=== PATIENT | female | born 1935 | race Caucasian/White ===

== ENCOUNTER 2017-04-14 12:49 | Day surgery (SDC) | payer MEDICARE, OTHER ==
[~2017-04-14] VITALS: Ht 152.4 cm; Wt 60.7 kg
[2017-04-14 13:27] VITALS: BP 155/82; PULSE 84; TEMP 99
[2017-04-14] MEDS ORDERED: PRILOSEC 20MG20 MG PO (14:26)
[2017-04-14] MEDS ORDERED: ULTRACET TABL1 UDTAB PO (14:28)
[2017-04-14] MEDS ORDERED: LEVOXYL0.137 MG PO (14:29)
[2017-04-14] MEDS ORDERED: NEURONTIN100 MG/CAP PO (14:30)
[2017-04-14] MEDS ORDERED: ZYRTEC 10MG10 MG PO (14:31)
[2017-04-14] MEDS ORDERED: CALCIUM CITRATE1 TA1 PO (14:32)
[2017-04-14] MEDS ORDERED: ACIDOPHILIS PO (14:33)
[2017-04-14] MEDS ORDERED: MULTI VITAMINS1 TAB PO (14:34)
[2017-04-14] MEDS ORDERED: LIBRIUM 5MG5 MG/CAP PO (14:35)
[2017-04-14] MEDS ORDERED: FLONASEALLERGY NS (14:36)
[2017-04-14] MEDS ORDERED: PRINIVIL40 MG PO (14:37)
[2017-04-14] MEDS ORDERED: ZOCOR 10MG10 MG PO (14:39)
[2017-04-14] MEDS ORDERED: NORVASC 5MG5 MG/TAB PO (14:40)
[2017-04-14 15:22] VITALS: BP 144/71; PULSE 80
== END 2017-04-14 19:30 | disposition home or self-care (01) ==
LOC: SDCO 12:49 → SURG 15:06 → SDCO 19:30
DX: K80.50 Calculus of bile duct without cholangitis or cholecystitis without obstruction (principal); K31.9 Disease of stomach and duodenum, unspecified; K83.8 Other specified diseases of biliary tract; K85.10 Biliary acute pancreatitis without necrosis or infection; K21.9 Gastro-esophageal reflux disease without esophagitis; I10 Essential (primary) hypertension; M19.90 Unspecified osteoarthritis, unspecified site; E03.9 Hypothyroidism, unspecified; Z90.49 Acquired absence of other specified parts of digestive tract
CPT/HCPCS: OP; C1769; J2704; J7120; Q9967